=== PATIENT | female | born 1950 | race Caucasian/White ===

== ENCOUNTER → 2020-02-04 12:01 | Outpatient (CLI) | payer MEDICARE, SELFPAY ==
--- NOTE | 2020-02-04 | DI.MG.S_ITS ---
BILATERAL DIGITAL SCREENING MAMMOGRAM 3D/2D WITH CAD: 02/04/2020 CLINICAL: Routine screening. Family history of breast cancer. Comparison is made to exams dated: 12/13/2016 mammogram, 04/30/2014 mammogram, and 04/28/2011 mammogram - [facility]. There are scattered fibroglandular elements in both breasts. Current study was also evaluated with a Computer Aided Detection (CAD) system. No significant masses, calcifications, or other findings are seen in either breast. There has been no significant interval change. IMPRESSION: NEGATIVE There is no mammographic evidence of malignancy. A 1 year screening mammogram is recommended. This exam was interpreted at Station ID: [id number]. NOTE: For mammograms, a report in lay terms will be sent to the patient. Approximately 15% of breast malignancies will not be visualized mammographically. In the management of a palpable breast mass, a negative mammogram must not discourage biopsy of a clinically suspicious lesion. Electronically Signed By: Clark galvin/abel:02/04/2020 14:16:40 letter sent: Normal Exam ACR BI-RADS Category 1: Negative 3341F
== END ==
PROVIDERS: Family Provider Nurse Practitioner; PCP Nurse Practitioner; Referring Provider Nurse Practitioner; Visit Provider Nurse Practitioner
DX: Z12.31 Encounter for screening mammogram for malignant neoplasm of breast (principal); Z80.3 Family history of malignant neoplasm of breast
CPT/HCPCS: 77063; 77067

== ENCOUNTER → 2020-06-15 12:37 | Outpatient (CLI) | payer MEDICARE, SELFPAY ==
--- NOTE | 2020-06-15 12:38 | DI.US.S_ITS ---
PROCEDURE: US PELVIC COMPLETE INDICATIONS: R ovarian cyst on CT scan TECHNIQUE: Real-time scanning was performed of the pelvic organs, with image documentation. Additional endovaginal scanning was necessary due to incomplete visualization of the adnexal and endometrial structures by transabdominal scanning. COMPARISON: , CT, ABDOMEN/PELVIS WITH CONTRAST, 02/28/2007, 19:34. FINDINGS: Uterus: Uterus is normal in size at 4.6 x 2.3 x 2.6 cm. The endometrial stripe is not perceived in this atrophic uterus. Ovaries: There is a right adnexal cyst seen that measures 8.6 x 8.7 x 10.8 cm. In 2006, this cyst measured 6 x 5.5 x 5.9 cm. No nodularity or abnormal vascularity can be seen of this cyst. Other: No pathologic free abdominal or pelvic fluid. IMPRESSION: Enlarging right ovarian cyst, without complicating features. In a patient of this age, concern is raised for an indolent cystic neoplasm. Dictated by: Nadeem Carter M.D. on 06/15/2020 at 14:08 Approved by: Nadeem Carter M.D. on 06/15/2020 at 14:09
== END ==
PROVIDERS: Family Provider Nurse Practitioner; PCP Nurse Practitioner; Referring Provider Obstetrics & Gynecology; Visit Provider Obstetrics & Gynecology
DX: N83.201 Unspecified ovarian cyst, right side (principal)
CPT/HCPCS: 76830; 76856

== ENCOUNTER → 2020-06-28 12:56 | Outpatient (CLI) | payer MEDICARE, SELFPAY ==
[2020-06-28 14:40] LABS: Cancer Antigen 125 8.2 U/mL (0-35)
== END ==
PROVIDERS: Family Provider Nurse Practitioner; PCP Nurse Practitioner; Referring Provider Obstetrics & Gynecology; Visit Provider Obstetrics & Gynecology
DX: N94.89 Other specified conditions associated with female genital organs and menstrual cycle (principal); N95.8 Other specified menopausal and perimenopausal disorders
CPT/HCPCS: 36415; 86304; 86305

== ENCOUNTER 2020-07-01 07:39 | Day surgery (SDC) | payer MEDICARE, SELFPAY ==
[2020-06-29 13:04] VITALS: BMI 31.0
[2020-07-01] VITALS (11 sets, daily range): BP systolic 115–178; BP diastolic 51–99; PULSE 62–87; RESP 12–19; TEMP 36.6–37; O2SAT 94–99; BMI 31.0
--- NOTE | 2020-07-01 | PATH_ITS ---
[facility] Accession Number: [id number] . 01 Material submitted: . OVARY/FALLOPIAN TUBE - RIGHT OVARY AND FALLOPIAN TUBE, LEFT FALLOPIAN TUBE . 02 Diagnosis: Right Ovary and Fallopian Tube, Left Fallopian Tube, Laparoscopic Right Salpingectomy-Oophorectomy and Left Salpingectomy: Right ovary with a benign serous cystadenoma (8.5 cm in greatest dimension). Right fallopian tube with serosal involvement by endometriosis, with tubo-ovarian adhesions, and with multiple benign paratubal cysts (1-2 mm in greatest dimension); suture material present with giant cell foreign body reaction, consistent with possible previous instrumentation; negative for malignancy. Left fallopian tube with involvement by endometriosis, with benign paratubal cysts (1-2 mm in greatest dimension), and with serosal adhesions; negative for malignancy. [facility] 07/06/2020 1150 Local . 02 Electronically signed: . Marcia Martinez MD, Pathologist NPI- [id number] . 01 Gross description: . The specimen is received in formalin, labeled right ovary and fallopian tube, left fallopian tube, and consists of an 8.5 x 7.0 x 4.8 cm, intact ovarian cyst with a tao-white, smooth external surface. Opening reveals a yellow-tinged serous fluid and a tao-pink inner lining with no papillary excrescences. The wall thickness averages 0.1 cm. The densely adherent fallopian tube measures 5.0 cm in length by 0.8 cm in diameter and displays a tao-pink, ragged serosa with fibrinous adhesions. Sectioning reveals a tao-pink mucosa and a lumen measuring 0.1 cm in diameter. Also received is an additional fallopian tube measuring 3.0 cm in length by 0.4 cm in diameter. The serosa is tao-pink and smooth with fibrinous adhesions. Sectioning reveals a tao-pink mucosa and a lumen measuring 0.1 cm in diameter. Clipper Automatic sections are submitted. . A1-A3: Clipper Automatic cyst. A4: Cyst in relation to fallopian tube, margin (blue), central cross sections, and bisected fimbria. A5: Other fallopian tube, margin (blue), central cross-sections, and bisected fimbria. ([id number]) /[facility] 07/03/2020 1531 Local . 02 Pathologist provided ICD-10: N83.8, N83.299 . 02 CPT . 985796 Performed at: 01 [facility] [address] [place] [address], [place], [place] [id number] MD Clark Gomes MD Phone: [phone] Performed at: 02 [facility] [address] [place], [place] [id number] MD Valentina Durbin MD Phone: [phone]
--- NOTE | 2020-07-01 08:40 | P.OP_ITS ---
Operative Date/Time/Diagnoses Date of procedure: 07/01/20 Time of procedure: 11:13 Pre-op diagnosis: Right ovarian mass Post-op diagnosis: same Procedure & Clinicians Procedure: Procedures Operation Date: 07/01/20 09:15 <No data on this case meets the specified criteria> Indications: Enlarging right ovarian mass Surgeon: Jeannette Yates Anesthesia Type: General and Local Operative Notes Findings: 12 cm right ovarian cyst Bilateral adnexal adhesions Normal liver Normal appendix Normal gallbladder Left ovary previously removed Bladder to uterine adhesions Closure Type: primary Specimen(s): left tube and right tube & ovary Estimated blood loss (mL): 10 Blood products transfused: none Procedure in detail: The patient was taken to the operating room where she was placed in the dorsal supine position. After adequate general endotracheal anesthesia was achieved, she was placed in the dorsal lithotomy position, and prepped and draped in the usual sterile fashion. A timeout was performed. A bivalve speculum was placed into the vagina and the anterior lip of the cervix grasped with a single-tooth tenaculum. The cervical os was sequentially dilated until the ZUMI uterine manipulator could pass easily into the endometrial cavity. The single-tooth tenaculum was removed from the anterior lip of the cervix, and the bivalve speculum was removed from the vagina. Attention was then turned to the abdomen where 6 mL of half percent Marcaine with epinephrine were injected in the umbilical fold. A 5 mm incision was made. The veress needle was placed into the peritoneal cavity, and its placement confirmed by aspiration and drop test. The veress needle was removed. A 5 mm trocar was placed without difficulty. 2 other incisions were made midway between the pubic symphysis and umbilicus after 5 mL of half percent Marcaine with epinephrine were injected. These were 5 mm incisions. Two, 5 mm trochars were placed under direct visualization. Pelvic washings were obtained. Using point aspirator, 200 cc of clear yellow fluid were drained from the right ovary. This was sent to cytology. Filmy adhesions were cut in the right adnexa using the Endo Konstantin. The right tube and ovary were grasped with an atraumatic grasper. Using the plasma kinetic with settings of 40 W the infundibulopelvic ligament was cauterized and cut. Hemostasis was achieved. The mesosalpinx The was cauterized and cut all the way to the cornu of the uterus. In the left adnexa and the tube was grasped at the fimbriated end. The Endo Konstantin were used to take down adhesions between the tube and the bowel. The mesosalpinx on the left side was then cauterized all the way to the cornua of the uterus. The tube was amputated at the cornua. The tube was removed through 1 of the 5 mm trocars. 6 mL of half percent Marcaine with epinephrine were injected above the pubic symphysis. A 12mm incision was made. A 12 mm trocar was placed under direct visualization. An Endobag was placed through the suprapubic incision and the right ovary and tube were placed into the Endobag. The bag was brought up through the suprapubic incision. The pelvis was copiously irrigated with warm normal saline. No bleeding was noted. The instruments were removed from the abdomen. The CO2 was allowed to escape. The suprapubic incision was closed on the fascia with 0 Vicryl. All of the incisions were closed with 4-0 Biosyn in a subcuticular fashion. Steri strips, 2x2's and op sites were placed over the incisions. The Zumi uterine manipulator was removed from the uterus. Sponge, lap, and instrument counts were correct x 2. The patient tolerated the proc edure well, was taken to PACU in stable condition. Complications: none Post-operative Condition: stable Disposition: PACU Plan for aftercare: Home after recovery
--- NOTE | 2020-07-01 08:43 | PM.HP.1 ---
History of Present Illness History of Present Illness Date Patient Seen: 07/01/20 Time Patient Seen: 08:43 Chief complaint: LAP R SALPINGECTOMY-OOPHORECTOMY Narrative: Patient is a 69 year old with an 8 cm right ovarian mass. CA-125 and HE-4 normal Patient History Medical History (Updated 06/29/20 @ 13:12 by Carol Lacey RN) HTN (hypertension) Hypothyroidism Seasonal allergies Surgical History (Updated 07/03/17 @ 06:21 by Conversion Provider) Status post delivery Status post delivery Family & Social History Family History (Updated 05/26/16 @ 00:00 by Conversion Provider) Mother Age: 92 Breast cancer Social History: household members spouse Tobacco & Substance use: Smoking Status Never smoker Meds Home Medications and Allergies Home Medications Medication Instructions Recorded Confirmed Type albuterol sulfate [Proventil HFA] 2 puff INH Q4HP #1 gm 04/19/16 06/29/20 Rx citalopram [Celexa] 20 mg PO QDAY #90 tab 04/19/16 06/29/20 Rx fluticasone propionate [Flonase 1 spray INTRANASAL QDAY #1 bot 04/19/16 06/29/20 Rx Allergy Relief] losartan [Cozaar] 50 mg PO QDAY #90 tab 04/19/16 06/29/20 Rx pantoprazole 20 mg PO QDAY #90 tab 04/19/16 06/29/20 Rx levothyroxine 0.112 mg PO QAM #90 tab 04/20/16 06/29/20 Rx Allergies Allergy/AdvReac Type Severity Reaction Status Date / Time amoxicillin [From Augmentin] AdvReac Mild GI UPSET Unverified 06/28/20 12:10 cefuroxime AdvReac Mild flush from Unverified 06/28/20 12:10 head to hips clavulanic acid AdvReac Mild GI UPSET Unverified 06/28/20 12:10 [From Augmentin] cyclobenzaprine AdvReac Unknown SEVERE Unverified 06/28/20 12:10 SEDATION Exam Vital Signs (past 8 hours): - 07/01/20 08:40 Temperature 98.6 F Pulse Rate 84 Respiratory Rate 13 Blood Pressure 178/99 H Pulse Oximetry 96 Oxygen Delivery Method Room Air Narrative Exam Narrative: HEENT: No thyromegaly, no anterior cervical or supraclavicular lymphadenopathy. Lungs:Clear to auscultation bilaterally, no wheezes. Cardiovascular: Regular rate and rhythm, no murmurs, rubs, or gallops. Abdomen: Well-healed Pfannenstiel scars. No hepatosplenomegaly. No masses palpable. External genitalia: Normal Vagina: Normal Cervix: Normal Bimanual exam: [7 Week size uterus. Mobile.] Right adnexal fullness Assessment & Plan Assessment & Plan narrative: Assessment: 69-year-old with 8 cm right ovarian mass Normal tumor markers Plan: Laparoscopic right salpingo-oophorectomy and left salpingectomy Will remove left ovary is still present The risks, benefits, and alternatives to the procedure were explained to the patient. The risks including bleeding, infection, injury to the bowel, bladder, or ureters. She understands these risks and agrees to proceed. A full par Q was held and consent form was signed. COVID-19 COVID-19 status: Result pending Result date/Date tested (Pos, Neg/Pending): 07/01/20 Time Spent With Patient Time with patient: 15-24 minutes
--- NOTE | 2020-07-01 08:46 | PM.PREOP ---
Pre-operative Note COVID-19 COVID-19 status: Result pending Result date/Date tested (Pos, Neg/Pending): 07/01/20 Interval Note History & Physical reviewed/Exam performed by Physician: Yes Changes to H&P: No H&P completed within 30 days and has changed as indicated here:: 07/01/20
[2020-07-01] MEDS: LACTATED RINGERS 1,000 ML 42 ML IV ×2 (09:00→10:07)
[2020-07-01 09:03] LABS: COVID19 -Nasal RAPID Negative (Negative)
[2020-07-01] MEDS: BUPIVACAINE 0.5% W/ EPI (PF) 30 ML VIAL INJ (10:09)
--- NOTE | 2020-07-01 10:12 | SUR.OPER ---
Lithotomy on padded OR bed. [place] Pad Positioner under torso. Head on pillow, arms padded and tucked at sides. Legs secured in padded yellow fins stirrups.
--- NOTE | 2020-07-01 10:40 | PATH_ITS ---
Note [facility] Accession Number: [id number] TESTS RESULT FLAG UNITS REF RANGE LAB Clinician Provided Cytology Information No. of containers..01 Other (Miscellaneous) PELVIC WASHINGS DIAGNOSIS: 01 PELVIC WASHINGS NEGATIVE FOR MALIGNANT CELLS. BENIGN MESOTHELIAL CELLS ARE PRESENT. THIS INTERPRETATION INCLUDES EVALUATION OF A CELL BLOCK. Pathologist ICD10: 01 N83.8 Sonia Vargas MD, Pathologist NPI- [id number] Ariel Rivera, Social Media Job Titles ([facility]) 01 25 CC, COLORLESS, CLEAR RECEIVED: FRESH IN ORANGE CAP CONTAINER. /VDU 07/05/2020 1031 Local FLAG LEGEND: L-Low Normal,H-High Normal,LL-Alert Low,HH-Alert High <-Panic Low,>-Panic High,A-Abnormal,AA-Critical Abnormal Performed at: 01 =Z [facility] [address], [place] [address] Clark Gomes MD, Performed at: 01 [facility] [address], [place], [place] [id number] MD Clark Gomes MD Phone: [phone]
--- NOTE | 2020-07-01 10:41 | PATH_ITS ---
Note [facility] Accession Number: [id number] TESTS RESULT FLAG UNITS REF RANGE LAB Clinician Provided Cytology Information No. of containers..01 Other (Miscellaneous) RIGHT OVARIAN CYST F DIAGNOSIS: 01 RIGHT OVARIAN CYST FLUID, ASPIRATION. NEGATIVE FOR MALIGNANT CELLS. FEW MACROPHAGES PRESENT. THIS INTERPRETATION INCLUDES EVALUATION OF A CELL BLOCK. Pathologist ICD10: 01 N83.8 Sonia Vargas MD, Pathologist NPI- [id number] Kd Calix, Arbor Press Operator ([facility]) 01 30 CC, YELLOW, CLEAR RECEIVED: FRESH IN ORANGE CAP CONTAINER. /VDU 07/05/2020 1032 Local FLAG LEGEND: L-Low Normal,H-High Normal,LL-Alert Low,HH-Alert High <-Panic Low,>-Panic High,A-Abnormal,AA-Critical Abnormal Performed at: 01 =Z [facility] [address], [place] [address] Clark Gomes MD, Performed at: 01 [facility] [address], [place], [place] [id number] MD Clark Gomes MD Phone: [phone]
[2020-07-01] MEDS: ONDANSETRON 4 MG/2 ML INJ IV (11:13)
[2020-07-01] MEDS: METOCLOPRAMIDE 10 MG/2 ML INJ IV (11:29)
[2020-07-01] MEDS: fentaNYL 100 MCG/2 ML INJ IV (11:33)
--- NOTE | 2020-07-01 11:39 | SUR.PHASEI ---
Pt nauseated, spoke with Dr. Dipika chavira ordered and administered, cool wash cloth to forehead and queaze ease to chest. Nausea resolved, fentanyl given for c/o r sided pain.
--- NOTE | 2020-07-01 11:49 | SUR.PHASEI ---
Report to HIREN Reaves
[2020-07-01] MEDS: OXYCODONE/ACETAMINOPHEN 5/325 TABLET 1 TAB PO (11:56)
== END 2020-07-01 13:03 | disposition home or self-care (01) ==
PROVIDERS: Family Provider Nurse Practitioner; PCP Nurse Practitioner; Referring Provider Nurse Practitioner; Visit Provider Obstetrics & Gynecology
PROC: (CPT 58661; principal; 2020-07-01 09:15)
DX: N83.8 Other noninflammatory disorders of ovary, fallopian tube and broad ligament (principal); N73.6 Female pelvic peritoneal adhesions (postinfective); I10 Essential (primary) hypertension; E03.9 Hypothyroidism, unspecified; Z20.822 Contact with and (suspected) exposure to COVID-19; D27.0 Benign neoplasm of right ovary
CPT/HCPCS: 58661; 87635; J0330; J1100; J2250; J2405; J2704; J2765; J3010

== ENCOUNTER → 2021-06-16 10:39 | Outpatient (CLI) | payer MEDICARE, SELFPAY ==
--- NOTE | 2021-06-16 | DI.MG.S_ITS ---
BILATERAL DIGITAL SCREENING MAMMOGRAM 3D/2D WITH CAD: 06/16/2021 CLINICAL: Routine screening. Family history of breast cancer. Comparison is made to exams dated: 02/04/2020 mammogram, 12/13/2016 mammogram, 04/30/2014 mammogram, and 12/17/2008 mammogram - [facility]. There are scattered fibroglandular elements in both breasts. Current study was also evaluated with a Computer Aided Detection (CAD) system. No significant masses, calcifications, or other findings are seen in either breast. There has been no significant interval change. IMPRESSION: NEGATIVE There is no mammographic evidence of malignancy. A 1 year screening mammogram is recommended. This exam was interpreted at Station ID: [id number]. NOTE: For mammograms, a report in lay terms will be sent to the patient. Approximately 15% of breast malignancies will not be visualized mammographically. In the management of a palpable breast mass, a negative mammogram must not discourage biopsy of a clinically suspicious lesion. Electronically Signed By: Juan celeste/abel:06/16/2021 18:17:26 letter sent: Normal Exam ACR BI-RADS Category 1: Negative 3341F
[2021-06-16 12:19] LABS: Add Manual Diff / Slide Review NO; Basophils Absolute Auto 0 /uL (0-100); Basophils Percent Auto 0.4 % (0-2); Eosinophils Absolute Auto 100 /uL (0-450); Eosinophils Percent Auto 1.3 % (2-4); Hematocrit 45.8 % (36-46); Hemoglobin 14.9 g/dL (12.0-16.0); Lymphocytes Absolute Auto 1200 /uL (1100-4500); Lymphocytes Percent Auto 18.6 % (25-40); Mean Corpuscular HGB Conc 32.5 % (30-36); Mean Corpuscular Hemoglobin 29.2 PG (26-34); Mean Corpuscular Volume 89.9 fL (80-100); Monocytes Absolute Auto 400 /uL (0-900); Monocytes Percent Auto 6.3 % (3-14); Neutrophils Absolute Auto 4900 /uL (1500-7000); Neutrophils Percent Auto 73.4 % (50-75); Platelet Count 247 X10^3/uL (150-400); Red Cell Distribution Width 13.9 % (11.6-14.8); White Blood Cell Count 6.7 X10^3/uL (4.5-11.0)
[2021-06-16 12:46] LABS: Hemoglobin A1C% w Est Avg Glu 6.6 % (4.0-6.0)
[2021-06-16 13:16] LABS: Alanine Aminotransferase 17 IU/L (<35); Albumin 4.6 g/dL (3.5-5.0); Albumin Globulin Ratio 1.8 (1.0-2.8); Alkaline Phosphatase 85 U/L (38-126); Aspartate Aminotransferase 26 IU/L (14-36); BUN Creatinine Ratio 15.9 (6-22); Blood Urea Nitrogen 14 mg/dL (7-17); Calcium 9.6 mg/dL (8.4-10.2); Carbon Dioxide 29 mmol/L (22-32); Chloride 104 mmol/L (98-107); Cholesterol 215 mg/dL (140-199); Estimated Glomerular Filt Rate > 60 mL/min (>60); Globulin 2.6 g/dL (1.7-4.1); Glucose 116 mg/dL (80-110); HDL Cholesterol 80 mg/dL (40-60); HEMOLYSIS < 15 (0-50); LDL Cholesterol Calculated 114 mg/dL (<100); Potassium 4.6 mmol/L (3.4-5.1); Sodium 140 mmol/L (137-145); Total Protein 7.2 g/dL (6.3-8.2); Triglycerides 106 mg/dL (35-150)
[2021-06-16 13:48] LABS: Thyroid Stimulating Hormone 0.823 uIU/mL (0.47-4.68)
[2021-06-16 15:15] LABS: Vitamin D 25 Hydroxy (D3) 20.1 ng/mL (30.0-100.0)
== END ==
PROVIDERS: Family Provider Nurse Practitioner; PCP Nurse Practitioner; Referring Provider Nurse Practitioner; Visit Provider Nurse Practitioner
DX: Z80.3 Family history of malignant neoplasm of breast (principal); I10 Essential (primary) hypertension; R73.03 Prediabetes; Z12.31 Encounter for screening mammogram for malignant neoplasm of breast; E55.9 Vitamin D deficiency, unspecified; E75.6 Lipid storage disorder, unspecified; E03.9 Hypothyroidism, unspecified
CPT/HCPCS: 36415; 77063; 77067; 80053; 80061; 82306; 83036; 84443; 85025

== ENCOUNTER → 2022-07-04 11:43 | Outpatient (CLI) | payer MEDICARE, SELFPAY ==
--- NOTE | 2022-07-04 | DI.MG.S_ITS ---
BILATERAL DIGITAL SCREENING MAMMOGRAM 3D/2D WITH CAD: 07/04/2022 CLINICAL: Routine screening. Family history of breast cancer. Comparison is made to exams dated: 06/16/2021 mammogram, 02/04/2020 mammogram, and 12/13/2016 mammogram - [facility]. There are scattered areas of fibroglandular density in both breasts (category b / 25%-50% glandular tissue). Current study was also evaluated with a Computer Aided Detection (CAD) system. No significant masses, calcifications, or other findings are seen in either breast. There has been no significant interval change. IMPRESSION: NEGATIVE There is no mammographic evidence of malignancy. A 1 year screening mammogram is recommended. Based on the Tyrer Cuzick model (a risk assessment model) the patient's lifetime risk is 10.2% and her 10 year risk is 6.5%. According to the ACR, ACS, and NCCN guidelines, an annual breast MRI exam along with mammogram is recommended if the patient's lifetime risk is 20% or greater. This exam was interpreted at Station ID: [id number]. NOTE: For mammograms, a report in lay terms will be sent to the patient. Approximately 15% of breast malignancies will not be visualized mammographically. In the management of a palpable breast mass, a negative mammogram must not discourage biopsy of a clinically suspicious lesion. Electronically Signed By: Rubi salcido/abel:07/04/2022 16:50:17 letter sent: Normal Exam ACR BI-RADS Category 1: Negative 3341F
[2022-07-04 12:45] LABS: Hematocrit 42.8 % (36-46); Hemoglobin 14.1 g/dL (12.0-16.0); Mean Corpuscular HGB Conc 32.9 % (30-36); Mean Corpuscular Volume 88.3 fL (80-100); Platelet Count 255 X10^3/uL (150-400); Red Blood Cell Count 4.84 X10^6/uL (4.0-5.2); Red Cell Distribution Width 14.5 % (11.6-14.8)
[2022-07-04 13:17] LABS: Alanine Aminotransferase 18 IU/L (<35); Albumin 4.1 g/dL (3.5-5.0); Albumin Globulin Ratio 1.6 (1.0-2.8); Alkaline Phosphatase 88 U/L (38-126); Aspartate Aminotransferase 25 IU/L (14-36); BUN Creatinine Ratio 13.6 (6-22); Bilirubin Total 1.2 mg/dL (0.2-1.3); Blood Urea Nitrogen 11 mg/dL (7-17); Calcium 9.4 mg/dL (8.4-10.2); Carbon Dioxide 25 mmol/L (22-32); Chloride 103 mmol/L (98-107); Cholesterol 205 mg/dL (140-199); Estimated Glomerular Filt Rate > 60 mL/min (>60); Globulin 2.6 g/dL (1.7-4.1); Glucose 102 mg/dL (80-110); HDL Cholesterol 66 mg/dL (40-60); HEMOLYSIS < 15 (0-50); LDL Cholesterol Calculated 110 mg/dL (<100); Potassium 4.5 mmol/L (3.4-5.1); Sodium 137 mmol/L (137-145); Total Protein 6.7 g/dL (6.3-8.2); Triglycerides 145 mg/dL (35-150)
[2022-07-04 17:23] LABS: Thyroid Stimulating Hormone 0.153 uIU/mL (0.47-4.68)
[2022-07-05 05:13] LABS: Labcorp Hemoglobin (Hb) A1c 6.3 % (4.8-5.6)
== END ==
PROVIDERS: Family Provider Nurse Practitioner; PCP Nurse Practitioner; Referring Provider Nurse Practitioner; Visit Provider Nurse Practitioner
DX: E78.2 Mixed hyperlipidemia (principal); R73.03 Prediabetes; Z12.31 Encounter for screening mammogram for malignant neoplasm of breast; Z80.3 Family history of malignant neoplasm of breast; E03.9 Hypothyroidism, unspecified; I10 Essential (primary) hypertension
CPT/HCPCS: 36415; 77063; 77067; 80053; 80061; 83036; 84443; 85027

== ENCOUNTER → 2024-08-16 09:56 | Outpatient (CLI) | payer MEDICARE, OTHER, SELFPAY ==
--- NOTE | 2024-08-16 10:03 | DI.MG.S_ITS ---
MM screening mammo BI: 08/16/2024. BI-RADS: 1 CLINICAL: 73-year old female for bilateral screening mammogram. Tyrer-Cuzick lifetime risk of 6.0%. Current reported family history of breast cancer: mother. PRIOR EXAMS 07/04/2022, 06/16/2021, 02/04/2020, 12/13/2016. MAMMOGRAPHY TECHNIQUE: 2D and 3D (tomosynthesis) digital mammographic views obtained, with additional images as needed for full coverage. Current study was also evaluated with a Computer Aided Detection (CAD) system. DENSITY A. The breasts are almost entirely fatty. MAMMOGRAPHY FINDINGS Bilateral: No suspicious mass, asymmetry, microcalcification, or other abnormality seen. No significant change from comparison. IMPRESSION: * No evidence of malignancy. RECOMMENDATIONS Bilateral * Annual screening mammography. OVERALL ASSESSMENT CATEGORY BI-RADS-1: Negative. The [employer] recommends annual screening mammography beginning at age 40 for women with average risk of breast cancer. ELECTRONICALLY SIGNED: Linette Bragg M.D. on 08/18/2024 at 03:42:43 PM PT Interpreting Station ID: [id number]
== END ==
LOC: MAMMO 10:02
PROVIDERS: Family Provider Nurse Practitioner; PCP Nurse Practitioner; Referring Provider Nurse Practitioner; Visit Provider Nurse Practitioner
DX: Z12.31 Encounter for screening mammogram for malignant neoplasm of breast (principal); Z80.3 Family history of malignant neoplasm of breast; R92.313 Mammographic fatty tissue density, bilateral breasts
CPT/HCPCS: 77063; 77067